=== PATIENT | female | born 1995 | race Caucasian/White ===

== ENCOUNTER 2017-05-12 16:26 | Emergency (ER) | payer OTHER ==
--- NOTE | 2017-05-12 17:15 | ED ---
URI HPI - General Chief Complaint: Upper Respiratory Infection Stated Complaint: Difficulty Breathing Time Seen by Provider: 05/12/17 16:53 Source: patient, family, RN notes reviewed, old records reviewed Mode of arrival: wheelchair - History of Present Illness Initial Comments: This patient is a 22-year-old female presents emergency Department chief complaint of difficulty breathing and cough. Who's your porch that she was diagnosed with allergies envelope respiratory on this by her primary care physician, start on allergy medicine and decongestant medicine. Patient ports of this is on Tuesday. Patient states that over the past three days to became worse. She states that she now has a difficult time breathing. No history of asthma. She's a non-smoker. She's really very healthy.Patient has had her childhood vaccinations. She denies any specific chest pain. She reports that she has bodyaches, headache, chills. - Related Data Home Medications Medication Instructions Recorded Confirmed Clarithromycin 250 mg PO BID 05/12/17 05/12/17 Lessina 1 tab PO DAILY 05/12/17 05/12/17 guaiFENesin SYRUP 100MG/5ML 200 mg PO Q6H PRN 05/12/17 05/12/17 [Robitussin] guaiFENesin [Mucinex] 600 mg PO BID 05/12/17 05/12/17 Previous Rx's Medication Instructions Recorded Albuterol Inhaler [Ventolin Hfa 1 - 2 puff INHALATION Q6HR PRN #1 05/12/17 Inhaler] inhaler predniSONE 50 mg PO DAILY #5 tablet 05/12/17 Allergies Allergy/AdvReac Type Severity Reaction Status Date / Time amoxicillin AdvReac Nausea Verified 05/12/17 17:03 amoxicillin trihydrate AdvReac Nausea Verified 05/12/17 17:03 [From Augmentin] potassium clavulanate AdvReac Nausea Verified 05/12/17 17:03 [From Augmentin] Review of Systems ROS Statement: Those systems with pertinent positive or pertinent negative responses have been documented in the HPI. ROS Other: All systems not noted in ROS Statement are negative. Past Medical History Additional Past Medical History / Comment(s): OVARIAN CYST History of Any Multi-Drug Resistant Organisms: None Reported Past Surgical History: No Surgical Hx Reported Past Psychological History: No Psychological Hx Reported Smoking Status: Never smoker Past Alcohol Use History: None Reported Past Drug Use History: None Reported General Exam - General Exam Comments Initial Comments: This is a 22 year old female. Patient does not appear in any acute distress. General appearance: alert, in no apparent distress Head exam: Present: atraumatic, normocephalic, normal inspection Eye exam: Present: normal appearance, PERRL, EOMI. Absent: scleral icterus, conjunctival injection, periorbital swelling ENT exam: Present: normal exam, mucous membranes moist Neck exam: Present: normal inspection. Absent: tenderness, meningismus, lymphadenopathy Respiratory exam: Present: wheezes (bilateral wheezing noted. ). Absent: normal lung sounds bilaterally, respiratory distress, rales, rhonchi, stridor Cardiovascular Exam: Present: regular rate, normal rhythm, normal heart sounds. Absent: systolic murmur, diastolic murmur, rubs, gallop, clicks GI/Abdominal exam: Present: soft, normal bowel sounds. Absent: distended, tenderness, guarding, rebound, rigid Extremities exam: Present: normal inspection, full ROM, normal capillary refill. Absent: tenderness, pedal edema, joint swelling, calf tenderness Neurological exam: Present: alert, oriented X3, CN II-XII intact Psychiatric exam: Present: normal affect, normal mood Skin exam: Present: warm, dry, intact, normal color. Absent: rash Course Vital Signs 05/12/17 05/12/17 05/12/17 16:45 17:41 17:49 Temperature 98.5 F Pulse Rate 80 65 66 Respiratory 18 14 14 Rate Blood Pressure 120/75 O2 Sat by Pulse 100 Oximetry 05/12/17 05/12/17 05/12/17 19:13 19:23 19:34 Temperature 97.7 F Pulse Rate 89 88 98 Respiratory 16 16 18 Rate Blood Pressure 117/56 O2 Sat by Pulse Oximetry Medical Decision Making - Medical Decision Making Patient is a 22-year-old female presents today with a chief complaint of headache, bodyaches, chills nausea and shortness of breath. She diagnosed with allergies and abreast of Dolly congestion earlier this week and was taking a decongestant medicine. Patient has had significant wheezing noted on exam. No other focal findings. Patient was given a Duoneb treatment and chest x-ray steroids and the nausea medicine. Patients Did have a improvement after the breathing treatment. She had a normal chest x-ray, influenza testing is negative. It is time patient will be discharged with steroids and albuterol inHailer for viral asthma exacerbation. I discussed prompt follow up with primary care provider. All questions were answered in return parameters were discussed. - Lab Data Lab Results 05/12/17 Range/Units 17:55 Influenza Type A RNA Not Detected (Not Detectd) Influenza Type B (PCR) Not Detected (Not Detectd) - Radiology Data Radiology results: report reviewed CXR was reviewed and normal. Disposition Clinical Impression: Asthma exacerbation, Viral syndrome Disposition: HOME SELF-CARE Condition: Good Instructions: Asthma (ED), Upper Respiratory Infection (ED) Additional Instructions: Patient resting Motrin Tylenol for pain and aches. Patient should increase her fluid intake. Take the steroids as directed and use inhaler. Follow-up with PCP within the next 2-3 days. Return to emergency department if any alarming signs or symptoms occur. Prescriptions: Albuterol Inhaler [Ventolin Hfa Inhaler] 1 - 2 puff INHALATION Q6HR PRN #1 inhaler PRN Reason: Shortness Of Breath predniSONE 50 mg PO DAILY #5 tablet Referrals: Cassandra Giordano DO [Primary Care Provider] - 1-2 days Time of Disposition: 18:40
[2017-05-12] MEDS ORDERED: methylPREDNISolone SOD SUCCI 125 MG/2 ML VIAL IV STA (17:24)
[2017-05-12] MEDS ORDERED: ONDANSETRON 4 MG/2 ML VIAL IVP STA (17:24)
[2017-05-12] MEDS ORDERED: IPRATROPIUM-ALBUTEROL 3 ML NEB INHALATION STA ×2 (17:40→18:57)
--- NOTE | 2017-05-12 18:20 | XR ---
EXAMINATION TYPE: XR chest 2V DATE OF EXAM: 05/12/2017 COMPARISON: 01/07/2016 HISTORY: Short of breath TECHNIQUE: Frontal and lateral views of the chest are obtained. FINDINGS: Heart and mediastinum are normal. Lungs are clear. Diaphragm is normal. Bony thorax is int act. 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 IMPRESSION: No cardiopulmonary disease. No change.
[2017-05-12 19:36] VITALS: BP 117/56; PULSE 98; RESP 18; TEMP 97.7
--- NOTE | 2017-05-13 07:41 | CDI ---
Dear Luis Manuel PA: Please do addendum to ED report for Physical exam and MDM. Thank you, Arabella Chirinos Chief Legal Officer If you have any question, Please contact school operations manager at [phone] [facility]
== END 2017-05-12 19:34 | disposition home or self-care (01) ==
LOC: EC 16:26
DX: J45.901 Unspecified asthma with (acute) exacerbation (principal); B34.9 Viral infection, unspecified; Z79.899 Other long term (current) drug therapy; Z88.0 Allergy status to penicillin
CPT/HCPCS: 94640 ×2; 87502; 71046; 99284; 96374; 96375; J2930; J2405

== ENCOUNTER 2018-07-21 01:40 | Emergency (ER) | payer OTHER ==
[2018-07-21 03:35] LABS: Appearance,Urine Clear (Clear); Bilirubin,Urine Negative (Negative); Blood,Urine Negative (Negative); Color,Urine Light Yellow; Glucose,Urine (UA) Negative (Negative); Ketones,Urine 1+ (Negative); Leukocyte Esterase,Urine Negative (Negative); Nitrite,Urine Negative (Negative); Protein,Urine Negative (Negative); Specific Gravity,Urine 1.012 (1.001-1.035); Urobilinogen,Urine <2.0 mg/dL (<2.0)
--- NOTE | 2018-07-21 03:44 | ED ---
Dizziness HPI - General Chief Complaint: Dizziness Stated Complaint: Dizzy,numbness Time Seen by Provider: 07/21/18 02:32 Source: patient Mode of arrival: ambulatory Limitations: no limitations - History of Present Illness Initial Comments: 23-year-old female with past medical history of chronic migraines presenting for evaluation of generalized numbness. Patient states she has history of chronic migraines, she states the past 2 months she has had visual changes with her migraines, she states it seems as though things are tilted. Patient denies ove rt dizziness. Patient denies any changes in gait, nausea vomiting head injury. Patient denies any neck pain. Patient denies any sudden onset of headache or the worst headache of her life. Patient states her headaches that she gets are that of her typical headache. She states they're mostly left-sided. Patient states she does have a dull aching headache currently however this does not appear out of character for her typical migraines. Patient is a she has not had evaluation for her migraines. Patient denies history of hypertension or diabetes. Patient denies history of aneurysm. Patient states that today she had one of her migraines with visual changes, she states that she then felt as though her whole body was numb, she was unable to really describe the sensation. She states it was not localized to one arm or leg or part of her face. She states it was just her entire body. She described as general malaise. Patient states she felt something was not right and presented to the emergency department for evaluation. Upon arrival pt appears well no acute distress. Remaining ROS (-). - Related Data Home Medications Medication Instructions Recorded Confirmed Clarithromycin 250 mg PO BID 05/12/17 05/12/17 Lessina 1 tab PO DAILY 05/12/17 05/12/17 guaiFENesin SYRUP 100MG/5ML 200 mg PO Q6H PRN 05/12/17 05/12/17 [Robitussin] guaiFENesin [Mucinex] 600 mg PO BID 05/12/17 05/12/17 Previous Rx's Medication Instructions Recorded Albuterol Inhaler [Ventolin Hfa 1 - 2 puff INHALATION Q6HR PRN #1 05/12/17 Inhaler] inhaler predniSONE 50 mg PO DAILY #5 tablet 05/12/17 Allergies Allergy/AdvReac Type Severity Reaction Status Date / Time amoxicillin AdvReac Nausea Verified 07/21/18 01:46 amoxicillin trihydrate AdvReac Nausea Verified 07/21/18 01:46 [From Augmentin] potassium clavulanate AdvReac Nausea Verified 07/21/18 01:46 [From Augmentin] Review of Systems ROS Statement: Those systems with pertinent positive or pertinent negative responses have been documented in the HPI. ROS Other: All systems not noted in ROS Statement are negative. Past Medical History Additional Past Medical History / Comment(s): OVARIAN CYST History of Any Multi-Drug Resistant Organisms: None Reported Past Surgical History: No Surgical Hx Reported Past Psychological History: No Psychological Hx Reported Smoking Status: Never smoker Past Alcohol Use History: None Reported Past Drug Use History: None Reported General Exam - General Exam Comments Initial Comments: General: The patient is awake and alert, in no distress, and does not appear acutely ill. Eye: +3 mm pupils are equal, round and reactive to light, extra-ocular movements are intact. No nystagmus. There is normal conjunctiva bilaterally. No signs of icterus. Ears, nose, mouth and throat: There are moist mucous membranes and no oral lesions. Neck: The neck is supple, there is no tenderness or JVD. Cardiovascular: There is a regular rate and rhythm. No murmur, rub or gallop is appreciated. Respiratory: Lungs are clear to auscultation, respirations are non-labored, breath sounds are equal. No wheezes, stridor, rales, or rhonchi. Gastrointestinal: Soft, non-distended, non-tender abdomen without masses or organomegaly noted. There is no rebound or guarding present. Bowel sounds are unremarkable. Musculoskeletal: Normal ROM, no tenderness. Strength 5/5. Sensation intact. Pulses equal bilaterally 2+. Neurological: A&O x 3. CN II-XII intact, memory intact to immediately, intermediate and termite control technician recall. Able to follow simple verbal. Able to name a common object (pen). High quality, labial (pa) and lingual (la) speech. Low quality posterior pharynx/larynx (ga) voice sounds. Able to express general knowledge. No hemineglect or inattention noted. Finger agnosia (-) and spatially oriented. Light touch and temperature sensation present over the face, chest, abdomen, back, UE bilaterally, and LE bilaterally. Able to localize point during point localization b/l and extinction. No visible bulk atrophy, hypertrophy, fasciculations, or myoclonus of the UE or LE b/l. Full PROM in UE and LE b/l. Bilateral muscle strength 5/5 for the following muscles: deltoid, biceps, triceps, brachioradialis, wrist extensors/flexor, hip flexor, hip abductors/adductors, hamstrings, quadriceps, feet dorsiflexors/plantar flexors. Finger to nose, finger to the examiners finger, and heel to dalal coordinated and accurate b/l. Coordinated and even demonstration of hand flip, finger to thumb, and toe tap b/l. +2 brachioradialis, triceps, patellar, and Achilles DTR b/l. (-) primitive reflexes. Gait is coordinated and even in stride with tandem, toe and heel walk. Maintains balance with monopedal stance. (-) pronator drift. No nuchal rigidity. Skin: Skin is warm and dry and no rashes or lesions are noted. Psychiatric: Cooperative, appropriate mood & affect, normal judgment. Limitations: no limitations Course Vital Signs 07/21/18 07/21/18 01:44 05:09 Temperature 98.4 F 97 F L Pulse Rate 68 76 Respiratory 16 18 Rate Blood Pressure 126/82 111/74 O2 Sat by Pulse 100 98 Oximetry EKG Findings - EKG Comments: EKG Findings:: Ventricular rate 56 bpm, OH interval 150 ms, to tenriism 82 ms, QT/QTC 410/395 ms. This is sinus bradycardia. Yesterday elevation or depression. No T-wave inversion. Medical Decision Making - Medical Decision Making Well-appearing 23-year-old female presenting for entire body numbness. Patient states she has had visual changes with headache for the months. Pt states she was more concerned when she felt like her entire body was numb. Denies focal symptoms. Denies chest pain. No focal neurological deficits I examination. No nuchal rigidity or meningeal irritation signs. Patient denies any infectious symptoms. Patient has history of migraines for years. Patient denies any sudden onset severe worst headache of her life. Patient denies any vomiting or head injury. CTA revealed no abnormalities of the posterior circulation. CT without contrast no acute abnormality. Patient at this time states she is feeling better. Patient is provided Toradol for dull aching headache. Laboratory studies unremarkable. At this time feel patient symptoms most likely due to complex migraine. I do do not feel at this time patient has life- threatening cause of entire body numbness sensation. Patient was instructed to follow-up with neurology. Patient is agreeable to plan of care as well as discharge. All questions were answered to the best of my ability Patient appears pleased with plan. Case was discussed at length with attending provider prior to patient discharge. - Lab Data Result diagrams: 07/21/18 03:47 07/21/18 03:27 Lab Results 07/21/18 07/21/18 07/21/18 Range/Units 03:23 03:27 03:47 WBC 6.0 (3.8-10.6) k/uL RBC 4.89 (3.80-5.40) m/uL Hgb 14.3 (11.4-16.0) gm/dL Hct 43.6 (34.0-46.0) % MCV 89.3 (80.0-100.0) fL MCH 29.2 (25.0-35.0) pg MCHC 32.7 (31.0-37.0) g/dL RDW 12.5 (11.5-15.5) % Plt Count 290 (150-450) k/uL Neutrophils % 41 % Lymphocytes % 46 % Monocytes % 6 % Eosinophils % 4 % Basophils % 1 % Neutrophils # 2.5 (1.3-7.7) k/uL Lymphocytes # 2.7 (1.0-4.8) k/uL Monocytes # 0.4 (0-1.0) k/uL Eosinophils # 0.2 (0-0.7) k/uL Basophils # 0.1 (0-0.2) k/uL Sodium 138 (137-145) mmol/L Potassium 3.9 (3.5-5.1) mmol/L Chloride 105 (98-107) mmol/L Carbon Dioxide 27 (22-30) mmol/L Anion Gap 6 mmol/L BUN 16 (7-17) mg/dL Creatinine 0.69 (0.52-1.04) mg/dL Est GFR (CKD-EPI)AfAm >90 (>60 ml/min/1.73 sqM) Est GFR (CKD-EPI)NonAf >90 (>60 ml/min/1.73 sqM) Glucose 88 (74-99) mg/dL Calcium 9.7 (8.4-10.2) mg/dL Total Bilirubin 0.6 (0.2-1.3) mg/dL AST 20 (14-36) U/L ALT 20 (9-52) U/L Alkaline Phosphatase 56 (38-126) U/L Total Protein 6.4 (6.3-8.2) g/dL Albumin 4.2 (3.5-5.0) g/dL Urine Color Light Yellow Urine Appearance Clear (Clear) Urine pH 7.0 (5.0-8.0) Ur Specific [place] 1.012 (1.001-1.035) Urine Protein Negative (Negative) Urine Glucose (UA) Negative (Negative) Urine Ketones 1+ H (Negative) Urine Blood Negative (Negative) Urine Nitrite Negative (Negative) Urine Bilirubin Negative (Negative) Urine Urobilinogen <2.0 (<2.0) mg/dL Ur Leukocyte Esterase Negative (Negative) Disposition Clinical Impression: Dizziness, Malaise Disposition: HOME SELF-CARE Condition: Good Instructions (If sedation given, give patient instructions): Dizziness (ED) Additional Instructions: Please use medication as discussed. Please follow-up with family doctor in the next 2 days. PLease follow up with neurology as discussed. Please return to [facility] if the symptoms increase or worsen or for any other concerns. Is patient prescribed a controlled substance at d/c from ED?: No Referrals: Cassandra Giordano DO [Primary Care Provider] - 1-2 days Mark Good MD [STAFF PHYSICIAN] - 1-2 days Sarah Good MD [STAFF PHYSICIAN] - 1-2 days Time of Disposition: 05:03
[2018-07-21 03:53] LABS: ALT 20 U/L (9-52); AST 20 U/L (14-36); Albumin 4.2 g/dL (3.5-5.0); Alkaline Phosphatase 56 U/L (38-126); Anion Gap 6 mmol/L; Blood Urea Nitrogen 16 mg/dL (7-17); Calcium 9.7 mg/dL (8.4-10.2); Carbon Dioxide 27 mmol/L (22-30); Chloride 105 mmol/L (98-107); Glucose 88 mg/dL (74-99); Potassium 3.9 mmol/L (3.5-5.1); Sodium 138 mmol/L (137-145); Total Bilirubin 0.6 mg/dL (0.2-1.3); Total Protein 6.4 g/dL (6.3-8.2)
--- NOTE | 2018-07-21 04:19 | CT ---
EXAM: CT Angiography Head With Intravenous Contrast CLINICAL HISTORY: Dizziness, hx headache. TECHNIQUE: Axial computed tomographic angiography images of the head with intravenous contrast using CT angiography protocol. MIP reconstructed images were created and reviewed. Coronal and sagittal reformatted images were created and reviewed. CTDI is 73.47 mGy and DLP is 1262.1 mGy-cm. This CT exam was performed using one or more of the following dose reduction techniques: automated exposure control, adjustment of the mA and/or kV according to patient size, and/or use of iterative reconstruction technique. COMPARISON: No relevant prior studies available. FINDINGS: Right internal carotid artery: No acute findings. Intracranial segment is patent with no significant stenosis. No aneurysm or vascular malformation. Right anterior cerebral artery: Unremarkable. No occlusion or significant stenosis. No aneurysm or vascular malformation. Right middle cerebral artery: Unremarkable. No occlusion or significant stenosis. No aneurysm or vascular malformation. Right posterior cerebral artery: Unremarkable. No occlusion or significant stenosis. No aneurysm or vascular malformation. Right vertebral artery: Unremarkable as visualized. Left internal carotid artery: No acute findings. Intracranial segment is patent with no significant stenosis. No aneurysm or vascular malformation. Left anterior cerebral artery: Unremarkable. No occlusion or significant stenosis. No aneurysm or vascular malformation. Left middle cerebral artery: Unremarkable. No occlusion or significant stenosis. No aneurysm or vascular malformation. Left posterior cerebral artery: Unremarkable. No occlusion or significant stenosis. No aneurysm or vascular malformation. Left vertebral artery: Unremarkable as visualized. Basilar artery: Unremarkable. No occlusion or significant stenosis. No aneurysm or vascular malformation. IMPRESSION: Patent intracranial arteries. No hemodynamically significant stenosis, occlusion, aneurysm or vascular malformation. EXAM: CT Angiography Neck With Intravenous Contrast CLINICAL HISTORY: Dizziness, hx headache. TECHNIQUE: Axial computed tomographic angiography images of the neck with intravenous contrast using CT angiography protocol. MIP reconstructed images were created and reviewed. Coronal and sagittal reformatted images were created and reviewed. CTDI is 73.47 mGy and DLP is 1262.1 mGy-cm. This CT exam was performed using one or more of the following dose reduction techniques: automated exposure control, adjustment of the mA and/or kV according to patient size, and/or use of iterative reconstruction technique. COMPARISON: No relevant prior studies available. FINDINGS: VASCULATURE: Right common carotid artery: Unremarkable. No significant stenosis. No dissection or occlusion. Right internal carotid artery: Unremarkable. Extracranial segment is patent with no significant stenosis. No dissection or occlusion. Right external carotid artery: Unremarkable. No occlusion. Right vertebral artery: Unremarkable. No significant stenosis. No dissection or occlusion. Left common carotid artery: Unremarkable. No significant stenosis. No dissection or occlusion. Left internal carotid artery: Unremarkable. Extracranial segment is patent with no significant stenosis. No dissection or occlusion. Left external carotid artery: Unremarkable. No occlusion. Left vertebral artery: Unremarkable. No significant stenosis. No dissection or occlusion. NECK: Bones/joints: No acute fracture. No dislocation. Soft tissues: Unremarkable as visualized. No mass. CAROTID STENOSIS REFERENCE USING NASCET CRITERIA: % ICA stenosis = (1 - narrowest ICA diameter/diameter of distal cervical ICA) x 100. Mild - <50% stenosis. Moderate - 50-69% stenosis. Severe - 70-94% stenosis. Near occlusion - 95-99% stenosis. Occluded - 100% stenosis. IMPRESSION: Normal neck CTA. No hemodynamically significant stenosis, occlusion or dissection.
--- NOTE | 2018-07-21 04:21 | CT ---
EXAM: CT Head Without Intravenous Contrast CLINICAL HISTORY: Dizziness, hx headache. TECHNIQUE: Axial computed tomography images of the head/brain without intravenous contrast. Coronal and sagittal reformations provided. CTDI is 42.8 mGy and DLP is 954.5 mGy-cm. This CT exam was performed using one or more of the following dose reduction techniques: automated exposure control, adjustment of the mA and/or kV according to patient size, and/or use of iterative reconstruction technique. COMPARISON: No relevant prior studies available. FINDINGS: Brain: No evidence of acute infarct. No acute intracranial hemorrhage. No significant white matter disease. No edema. No mass effect or midline shift. Ventricles: Unremarkable. No ventriculomegaly. Bones/joints: Unremarkable. No acute fracture. Soft tissues: Unremarkable. Sinuses: Unremarkable as visualized. No acute sinusitis. Mastoid air cells: Unremarkable as visualized. No mastoid effusion. IMPRESSION: No evidence of acute intracranial abnormality.
[2018-07-21] MEDS ORDERED: KETOROLAC 30 MG/ML 1 ML VIAL IVP STA (04:43)
[2018-07-21 04:47] LABS: Basophils # (A) 0.1 k/uL (0-0.2); Basophils % (A) 1 %; Eosinophils # (A) 0.2 k/uL (0-0.7); Eosinophils % (A) 4 %; HCT 43.6 % (34.0-46.0); HGB 14.3 gm/dL (11.4-16.0); Lymphocytes # (A) 2.7 k/uL (1.0-4.8); Lymphocytes % (A) 46 %; MCH 29.2 pg (25.0-35.0); MCHC 32.7 g/dL (31.0-37.0); MCV 89.3 fL (80.0-100.0); Monocytes # (A) 0.4 k/uL (0-1.0); Monocytes % (A) 6 %; Neutrophils # (A) 2.5 k/uL (1.3-7.7); Neutrophils % (A) 41 %; Platelet Count 290 k/uL (150-450); RBC 4.89 m/uL (3.80-5.40); RDW 12.5 % (11.5-15.5)
[2018-07-21 05:11] VITALS: BP 111/74; PULSE 76; RESP 18; TEMP 97
== END 2018-07-21 05:10 | disposition home or self-care (01) ==
LOC: EC 01:40
DX: R42 Dizziness and giddiness (principal); R53.81 Other malaise; R51 Headache; Z79.3 Long term (current) use of hormonal contraceptives; Z79.899 Other long term (current) drug therapy; Z88.0 Allergy status to penicillin
CPT/HCPCS: 36415; 93005; 80053; 85025; 81003; 70496; 70450; 70498; 99284; 96374; J1885; Q9967

== ENCOUNTER → 2018-09-02 | Outpatient (CLI) | payer OTHER ==
--- NOTE | 2018-09-02 17:49 | MR ---
EXAMINATION TYPE: MR brain wo con DATE OF EXAM: 09/02/2018 COMPARISON: None HISTORY: Visual disturbances / Syncope / Passed out in July Standard multiplanar, multisequence MRI departmental protocol Multiplanar, multisequence images of the brain were acquired. Diffusion weighted imaging was performe d. FINDINGS: Ventricles and sulci appear normal. There is no mass effect nor midline shift. There is no sign of intracranial hemorrhage. Brainstem is intact. Corpus callosum appears normal. Sella turcica a ppears normal. There is no evidence of cerebral edema. There is no evidence of orbital mass. Optic ch iasm appears normal. On the FLAIR images there are 2 small foci of increased signal in the subcortical left posterior fron cris lobe that measure 2 mm. There is no evidence of cortical infarct. IMPRESSION: 2 small white matter high signal foci in the left posterior frontal lobe of uncertain significance. O therwise negative exam. No cortical infarct.
== END | disposition home or self-care (01) ==
LOC: RADMRIMAIN 10:14
PROVIDERS: ATTEND Family Medicine
DX: R90.89 Other abnormal findings on diagnostic imaging of central nervous system (principal); R55 Syncope and collapse; R53.83 Other fatigue; H53.8 Other visual disturbances
CPT/HCPCS: 70551

== ENCOUNTER 2018-10-03 14:41 | Emergency (ER) | payer OTHER ==
[2018-10-03 14:49] VITALS: RESP 18
--- NOTE | 2018-10-03 18:14 | ED ---
General Adult HPI - General Chief complaint: Weakness Stated complaint: Having a hard time talking Time Seen by Provider: 10/03/18 14:58 Source: patient Mode of arrival: wheelchair Limitations: no limitations - History of Present Illness Initial comments: Patient is a 23-year-old female presenting to the emergency Department with weakness. Patient reports her initial symptoms started approximately 6 months ago patient with the emergency department where she was discharged without a final diagnosis. Patient follow-up with primary care who sent her to a neurologist. An MRI without contrast was performed and showed 2 small masses in the frontal lobe. Patient reports she was scheduled to have an MRI with contrast but the process has been delayed. Patient states she currently developed one-sided facial weakness and states left-sided "funny" feeling in her throat. Patient also reports seeing intermittent black spots. Patient denies headache, nausea, vomiting or diarrhea. Patient does report intermittent numbness and tingling on the left upper lower extremity. Patient reports a chronic symptoms but today they're worse than usual. - Related Data Home Medications Medication Instructions Recorded Confirmed Aranelle 28 1 tab PO QAM 10/03/18 10/03/18 L.acidoph,Paracasei, B.lactis 1 cap PO DAILY 10/03/18 10/03/18 [Probiotic] Allergies Allergy/AdvReac Type Severity Reaction Status Date / Time amoxicillin AdvReac Nausea Verified 10/03/18 17:24 amoxicillin trihydrate AdvReac Nausea Verified 10/03/18 17:24 [From Augmentin] potassium clavulanate AdvReac Nausea Verified 10/03/18 17:24 [From Augmentin] Review of Systems ROS Statement: Those systems with pertinent positive or pertinent negative responses have been documented in the HPI. ROS Other: All systems not noted in ROS Statement are negative. Past Medical History Additional Past Medical History / Comment(s): OVARIAN CYST. 2 lesions in frontal lobe History of Any Multi-Drug Resistant Organisms: None Reported Past Surgical History: No Surgical Hx Reported Past Psychological History: No Psychological Hx Reported Smoking Status: Never smoker Past Alcohol Use History: Occasional Past Drug Use History: None Reported General Exam Limitations: no limitations General appearance: alert, in no apparent distress Head exam: Present: atraumatic, normocephalic, normal inspection Eye exam: Present: normal appearance, PERRL, EOMI Pupils: Present: normal accommodation ENT exam: Present: normal exam, normal oropharynx, mucous membranes moist, TM's normal bilaterally, normal external ear exam, other (No facial droopiness. Face symmetrical.) Neck exam: Present: normal inspection, full ROM Respiratory exam: Present: normal lung sounds bilaterally Cardiovascular Exam: Present: regular rate, normal rhythm, normal heart sounds Extremities exam: Present: normal inspection, full ROM, normal capillary refill, other (+2 ulnar and radial pulses bilaterally. +2 dorsalis pedis and posterior tibialis bilaterally.) Back exam: Present: normal inspection, full ROM Neurological exam: Present: alert, oriented X3 Psychiatric exam: Present: normal affect, normal mood Skin exam: Present: warm, intact, normal color Course Vital Signs 10/03/18 10/03/18 14:44 16:30 Temperature 97.9 F Pulse Rate 98 73 Respiratory 18 18 Rate Blood Pressure 134/86 122/97 O2 Sat by Pulse 99 98 Oximetry Medical Decision Making - Medical Decision Making Patient a 23-year-old female presents emergency Department with weakness. Based on the patient's history and the symptoms she is experiencing occurred to be transient and intermittent in nature. She has a preestablished relationship with neurologist Dr. Girard and needs further management with him. Initially patient was going to be admitted for further management and an MRI with contrast in the morning. The flight test data acquisition technician was able obtain the MRI immediately after the order was placed. At this point, the mother and patient want to go home. The patient feels comfortable going home as she understands her symptoms are transient because she has experienced them before. the imaging will be sent to her neurologist after final reading is obtained from radiology. Strict return parameters were thoroughly discussed with patient and mother were understanding and agreeable. also examine the patient and is in agreement with the treatment plan. Disposition Clinical Impression: Weakness Disposition: HOME SELF-CARE Condition: Stable Additional Instructions: Please follow up with her neurologist. Please return to emergency department if symptoms worsen. Is patient prescribed a controlled substance at d/c from ED?: No Referrals: Cassandra Giordano DO [Primary Care Provider] - 1-2 days Time of Disposition: 18:20
--- NOTE | 2018-10-03 18:40 | MR ---
EXAMINATION TYPE: MR brain wo/w con DATE OF EXAM: 10/03/2018 COMPARISON: MRI 09/02/2018 HISTORY: Left side weakness/numbness TECHNIQUE: Multiplanar, multisequence images of the brain and brainstem is performed without and with IV contras t, utilizing 5.5 mL intravenous Gadavist . FINDINGS: Diffusion weighted images demonstrate no evidence of a recent infarct or other diffusion ab normality. There is no extra-axial fluid collection or significant white matter signal abnormality. The ventricular system and cisternal spaces are normal in size and appearance. The brain volume is age appropriate. The previously seen 2 small foci of increased signal in the subcortical left posterior frontal lobe a re unchanged. These foci have normal postgadolinium appearance. Post contrast images demonstrate no abnormal enhancement. The dural venous sinuses appear patent. Midline structures demonstrate normal morphology. The craniocervical junction appears within normal limits. The visualized sinuses are clear and the globes are intact. IMPRESSION: No acute process; stable MRI appearance; normal contrast enhancement pattern.
[2018-10-03 18:53] VITALS: BP 111/71; PULSE 61; TEMP 97.8
== END 2018-10-03 18:53 | disposition home or self-care (01) ==
LOC: EC 14:41
DX: R53.1 Weakness (principal); R20.0 Anesthesia of skin; R20.2 Paresthesia of skin; R29.810 Facial weakness; Z87.42 Personal history of other diseases of the female genital tract; Z79.3 Long term (current) use of hormonal contraceptives; Z88.0 Allergy status to penicillin
CPT/HCPCS: 70553; 99284; A9585

== ENCOUNTER → 2019-08-14 | Outpatient (CLI) | payer OTHER ==
--- NOTE | 2019-08-14 16:28 | US ---
EXAMINATION TYPE: US pelvis complete transvag DATE OF EXAM: 08/14/2019 COMPARISON: NONE CLINICAL HISTORY: N92.6 irregular menstration. TECHNIQUE: Transvaginal (TV) and Transabdominal (TA) . Transabdominal sonographic images of the pel vis were acquired. Transvaginal sonographic images were medically necessary to better assess the fol lowing anatomy: Date of LMP: 3 months prior EXAM MEASUREMENTS: Uterus: 6.4 x 3.6 x 5.4 cm Endometrial Stripe: 0.4 cm Right Ovary: extensive overlying bowel gas, obscured Left Ovary: 2.2 x 1.3 x 1.2 cm 1. Uterus: Retroverted 2. Endometrium: wnl 3. Right Ovary: extensive overlying bowel gas, obscured 4. Left Ovary: wnl 5. Bilateral Adnexa: 6. Posterior cul-de-sac: mild to moderate fluid Urinary bladder is sonolucent. Posterior wall is normal. IMPRESSION: 1. Limited pelvic ultrasound due to bowel gas. 2. No suspicious acute ultrasound changes.
== END | disposition home or self-care (01) ==
LOC: RADUSMAIN 13:53
PROVIDERS: ATTEND Family Medicine
DX: N92.6 Irregular menstruation, unspecified (principal)
CPT/HCPCS: 76830; 76856

== ENCOUNTER → 2020-10-09 | Outpatient (CLI) | payer OTHER ==
--- NOTE | 2020-10-09 12:05 | US ---
EXAMINATION TYPE: US thyroid st tissue head/neck DATE OF EXAM: 10/09/2020 COMPARISON: NONE CLINICAL HISTORY: R59.0 Localized enlarged lymph nodes. Left neck supraclavicular palpable lymph node s x 3 months Left neck: multiple nymph nodes with largest measuring 1.4 x 0.2 x 0.6cm Right neck: lymph node seen measuring 1.3 x 0.3 x 0.9cm IMPRESSION: Multiple normal-appearing lymph nodes are seen in the bilateral neck. CT with contrast is more sensit thalia.
== END | disposition home or self-care (01) ==
LOC: RADUSWWP 09:33
PROVIDERS: ATTEND Family Medicine
DX: R59.0 Localized enlarged lymph nodes (principal)
CPT/HCPCS: 76536

== ENCOUNTER 2022-09-11 14:26 | Observation (INO) | payer BC ==
[2022-09-11 15:19] LABS: Appearance,Urine Clear (Clear); Bilirubin,Urine Negative (Negative); Blood,Urine Negative (Negative); Color,Urine Yellow; Glucose,Urine (UA) Negative (Negative); Ketones,Urine Negative (Negative); Leukocyte Esterase,Urine Negative (Negative); Nitrite,Urine Negative (Negative); PH, Urine 7.5 (5.0-8.0); Protein,Urine Negative (Negative); Specific Gravity,Urine 1.013 (1.001-1.035); Urobilinogen,Urine <2.0 mg/dL (<2.0)
[2022-09-11] MEDS: LACTATED RINGERS 1,000 ML IV SCH ×3 (16:00→17:25)
[2022-09-11 17:29] VITALS: RESP 16
[2022-09-11 17:29] LABS: Basophils % (A) 0 %; Eosinophils % (A) 0 %; HCT 35.7 % (34.0-46.0); HGB 12.1 gm/dL (11.4-16.0); Lymphocytes # (A) 1.5 k/uL (1.0-4.8); Lymphocytes % (A) 10 %; MCH 30.8 pg (25.0-35.0); MCHC 33.8 g/dL (31.0-37.0); Mean Platelet Volume 7.9; Monocytes # (A) 0.6 k/uL (0-1.0); Monocytes % (A) 4 %; Neutrophils % (A) 84 %; Platelet Count 292 k/uL (150-450); RBC 3.93 m/uL (3.80-5.40); RDW 12.6 % (11.5-15.5); WBC 14.2 k/uL (3.8-10.6)
--- NOTE | 2022-09-11 18:23 | US ---
EXAMINATION TYPE: US kidneys/renal and bladder DATE OF EXAM: 09/11/2022 COMPARISON: NONE CLINICAL INDICATION: Female, 27 years old with history of possible kidney stone; Right flank pain. pa tient is EXAM MEASUREMENTS: Right Kidney: 11.8 x 6.0 x 4.8 cm Left Kidney: 11.5 x 5.4 x 4.9 cm Right Kidney: mild hydronephrosis, cortical medullary differentiation maintained. Left Kidney: mild hydronephrosis, cortical medullary differentiation maintained. Bladder: not fully distended Bilateral Jets seen: no There is no evidence for hydronephrosis at this point in time. No nephrolithiasis is seen. No drake s are identified. The urinary bladder is anechoic. IMPRESSION: Mild bilateral hydronephrosis which can be seen in the setting of normal .
[2022-09-11] MEDS ORDERED: HYDROmorphone 1 MG/ML 1 ML SYRINGE IVP PRN (18:51)
[2022-09-11] MEDS ORDERED: ACETAMINOPHEN TAB 325 MG TAB PO PRN (18:51)
[2022-09-12] MEDS: LACTATED RINGERS 1,000 ML IV SCH (00:57)
[2022-09-12 07:48] VITALS: BP 116/57; PULSE 71; TEMP 97.1
--- NOTE | 2022-09-12 09:05 | P.HPOB ---
History of Present Illness H&P Date: 09/11/22 Chief Complaint: contractions 27 year old presents at 29 weeks 1 day complaining of contractions every few minutes. heart tones category 1. cervix is closed and thick but she is showing contractions every few minutes and complaining of back pain. US of kid neys neg as well as UA neg but wbc are elevated at 14. will admit to [facility] for hydration and antibiotics. Review of Systems All systems: negative Constitutional: Denies chills, Denies fever Eyes: denies blurred vision, denies pain Ears, nose, mouth and throat: Denies headache, Denies sore throat Cardiovascular: Denies chest pain, Denies shortness of breath Respiratory: Denies cough Gastrointestinal: Denies abdominal pain, Denies diarrhea, Denies nausea, Denies vomiting Genitourinary: Denies dysuria, Denies hematuria Musculoskeletal: Denies myalgias Integumentary: Denies pruritus, Denies rash Neurological: Denies numbness, Denies weakness Psychiatric: Denies anxiety, Denies depression Endocrine: Denies fatigue, Denies weight change Past Medical History Past Medical History: No Reported History Additional Past Medical History / Comment(s): OVARIAN CYST. 2 lesions in frontal lobe History of Any Multi-Drug Resistant Organisms: None Reported Past Surgical History: No Surgical Hx Reported Past Anesthesia/Blood Transfusion Reactions: No Reported Reaction Past Psychological History: No Psychological Hx Reported Smoking Status: Never smoker Past Alcohol Use History: None Reported Past Drug Use History: None Reported Medications and Allergies Home Medications Medication Instructions Recorded Confirmed Type Ascorbic Acid [Vitamin C] 500 mg PO DAILY 09/11/22 09/11/22 History Calcium Carbonate [Calcium] 600 mg PO DAILY 09/11/22 09/11/22 History Cholecalciferol (Vitamin D3) 1,250 mcg PO DAILY 09/11/22 09/11/22 History [Vitamin D3] Vit No.179/Iron/Folic 1 each PO DAILY 09/11/22 09/11/22 History [ Tablet] Psyllium Husk [Fiber Capsule] 0.4 gm PO DAILY 09/11/22 09/11/22 History Vitamin B Complex 1 each PO DAILY 09/11/22 09/11/22 History Allergies Allergy/AdvReac Type Severity Reaction Status Date / Time amoxicillin AdvReac Nausea Verified 10/03/18 17:24 amoxicillin trihydrate AdvReac Nausea Verified 10/03/18 17:24 [From Augmentin] potassium clavulanate AdvReac Nausea Verified 10/03/18 17:24 [From Augmentin] Exam Osteopathic Statement: *. No significant issues noted on an osteopathic structural exam other than those noted in the History and Physical/Consult. Vital Signs Temp Pulse Resp BP Pulse Ox 09/12/22 07:46 97.1 F L 71 16 116/57 100 09/12/22 01:03 96.7 F L 53 L 16 128/62 98 09/11/22 20:00 97.5 F L 72 16 128/82 100 09/11/22 17:26 97.1 F L 16 134/71 09/11/22 15:04 97.0 F L 90 18 133/74 98 Intake and Output 09/11/22 09/12/22 09/12/22 22:59 06:59 14:59 Other: # Voids 2 2 Weight 58.967 kg Heart: Regular rate and rhythm Lungs: Clear to auscultation bilaterally Abdomen: Soft, nontender Extremities: Negative Homans sign Results Result Diagrams: 09/11/22 17:00 Abnormal Lab Results - Last 24 Hours (Table) 09/11/22 Range/Units 17:00 WBC 14.2 H (3.8-10.6) k/uL Neutrophils # 12.0 H (1.3-7.7) k/uL Assessment and Plan (1) 29 weeks gestation of Current Visit: Yes Status: Acute Code(s): Z3A.29 - 29 WEEKS GESTATION OF SNOMED Code(s): 14005854 (2) Back pain affecting Current Visit: Yes Status: Acute Code(s): O99.891 - OTH DISEASES AND CO NDITIONS COMPLICATING ; M54.9 - DORSALGIA, UNSPECIFIED SNOMED Code(s): 58535906 (3) contractions Current Visit: Yes Status: Acute Code(s): O47.00 - FALSE LABOR BEFORE 37 COMPLETED WEEKS OF GEST, UNSP TRI SNOMED Code(s): 816981594 Plan: 1. admit to [facility] 2. IV fluids 3. ancef 1 gram q 6
--- NOTE | 2022-09-12 09:08 | P.DS ---
Providers Date of admission: 09/11/22 17:08 Expected date of discharge: 09/12/22 Attending physician: Fartun Dubon Primary care physician: Stated None - Discharge Diagnosis(es) (1) 29 weeks gestation of Current Visit: Yes Status: Acute (2) Back pain affecting Current Visit: Yes Status: Acute (3) contractions Current Visit: Yes Status: Acute Hospital Course: Patient presented complaining of contractions at 29 weeks. She had IV fluids and IV antibiotics. She has since stopped fredo and feels a lot better. She has no back pain or abdominal pain. Patient will be discharged home to follow-up with Dr. Agosto next week. Plan - Discharge Summary New Discharge Prescriptions: New Cephalexin [Keflex] 500 mg PO Q6HR 7 Days #28 cap No Action Ascorbic Acid [Vitamin C] 500 mg PO DAILY Psyllium Husk [Fiber Capsule] 0.4 gm PO DAILY Vitamin B Complex 1 each PO DAILY Vit No.179/Iron/Folic [ Tablet] 1 each PO DAILY Cholecalciferol (Vitamin D3) [Vitamin D3] 1,250 mcg PO DAILY Calcium Carbonate [Calcium] 600 mg PO DAILY Discharge Medication List Ascorbic Acid [Vitamin C] 500 mg PO DAILY 09/11/22 [History] Calcium Carbonate [Calcium] 600 mg PO DAILY 09/11/22 [History] Cholecalciferol (Vitamin D3) [Vitamin D3] 1,250 mcg PO DAILY 09/11/22 [History] Vit No.179/Iron/Folic [ Tablet] 1 each PO DAILY 09/11/22 [History] Psyllium Husk [Fiber Capsule] 0.4 gm PO DAILY 09/11/22 [History] Vitamin B Complex 1 each PO DAILY 09/11/22 [History] Cephalexin [Keflex] 500 mg PO Q6HR 7 Days #28 cap 09/12/22 [Rx] Follow up Appointment(s)/Referral(s): Jim Agosto MD [STAFF PHYSICIAN] - 1 Week Discharge Disposition: HOME SELF-CARE
== END 2022-09-12 10:01 | disposition home or self-care (01) ==
LOC: FBPOP 14:26 → 4FBP 17:08
PROVIDERS: ADMIT Obstetrics & Gynecology; ATTEND Obstetrics & Gynecology
DX: O60.03 Preterm labor without delivery, third trimester (principal); O99.891 Other specified diseases and conditions complicating pregnancy; M54.9 Dorsalgia, unspecified; D72.829 Elevated white blood cell count, unspecified; Z88.0 Allergy status to penicillin; Z88.8 Allergy status to other drugs, medicaments and biological substances; Z3A.29 29 weeks gestation of pregnancy; Z87.42 Personal history of other diseases of the female genital tract
CPT/HCPCS: 59025; 99214; 96361 ×2; 96365; 84112; 82731; 85025; 81003; 87086; 76770; G0378; J0690 ×2; 96360

== ENCOUNTER 2022-11-22 16:07 | Inpatient (IN) | payer BC ==
--- NOTE | 2022-11-22 07:01 | P.HPOB ---
History of Present Illness H&P Date: 11/22/22 Chief Complaint: Requested induction of labor This patient is a pleasant 27-year-old 1 para 0 female estimated date of confinement 11/26/2022 estimated gestational age 39-3/7 weeks who presents to labor and delivery for requested induction of labor. Patient's care for the most part has been uncomplicated. She did have an admission for suspected urinary tract infection and back pain. Patient's uncomfortable but does have an unfavorable cervix is now presents for Cervidil induction of labor. Review of Systems Genitourinary: Reports Menstruation: Reports amenorrhea Past Medical History Past Medical History: No Reported History Additional Past Medical History / Comment(s): OVARIAN CYST. 2 lesions in frontal lobe History of Any Multi-Drug Resistant Organisms: None Reported Past Surgical History: No Surgical Hx Reported Past Anesthesia/Blood Transfusion Reactions: No Reported Reaction Past Psychological History: No Psychological Hx Reported Smoking Status: Never smoker Past Alcohol Use History: None Reported Past Drug Use History: None Reported Medications and Allergies Home Medications Medication Instructions Recorded Confirmed Type Ascorbic Acid [Vitamin C] 500 mg PO DAILY 09/11/22 09/11/22 History Calcium Carbonate [Calcium] 600 mg PO DAILY 09/11/22 09/11/22 History Cholecalciferol (Vitamin D3) 1,250 mcg PO DAILY 09/11/22 09/11/22 History [Vitamin D3] Vit No.179/Iron/Folic 1 each PO DAILY 09/11/22 09/11/22 History [ Tablet] Psyllium Husk [Fiber Capsule] 0.4 gm PO DAILY 09/11/22 09/11/22 History Vitamin B Complex 1 each PO DAILY 09/11/22 09/11/22 History Cephalexin [Keflex] 500 mg PO Q6HR 7 Days #28 cap 09/12/22 Rx Allergies Allergy/AdvReac Type Severity Reaction Status Date / Time amoxicillin AdvReac Nausea Verified 10/03/18 17:24 amoxicillin trihydrate AdvReac Nausea Verified 10/03/18 17:24 [From Augmentin] potassium clavulanate AdvReac Nausea Verified 10/03/18 17:24 [From Augmentin] Exam - OBG Physical Exam Abdomen: bowel sounds normal, no diffuse tenderness, no bruit present, no guarding noted, no hepatomegaly, no splenomegaly, no mass Vulva: both: normal Vagina: normal moisture, no discharge Cervix: no lesion (Cervix in the office is closed.), no discharge Uterus: enlarged Results labs show that she is A positive, rubella immune, RPR is nonreactive, hepatitis B and C were negative, HIV is negative, so free DNA was normal, Glucola was 92, most recent growth ultrasound showed to be 6 lbs. 1 oz. which is 52nd percentile. Assessment and Plan Assessment: This is a pleasant 27-year-old 1 para 0 female 39-3/7 weeks gestation admitted to labor and delivery for requested induction of labor secondary to maternal discomfort. Patient's unfavorable cervix and therefore we plan to proceed with Cervidil induction of labor. (1) 39 weeks gestation of Status: Acute Code(s): Z3A.39 - 39 WEEKS GESTATION OF SNOMED Code(s): 38740787 (2) Elective induction of labor planned Status: Acute Code(s): OLG3214 - SNOMED Code(s): 796034155
[2022-11-22] MEDS ORDERED: DINOPROSTONE 10 MG INSERT.ER VAGINAL ONE (16:28)
[2022-11-22] MEDS ORDERED: NALBUPHINE 10 MG/ML (10 ML MDV) IV PRN (16:28)
[2022-11-22 16:37] VITALS: RESP 16
[2022-11-22] MEDS: LACTATED RINGERS 1,000 ML IV SCH (22:00)
[2022-11-22 23:33] LABS: Basophils # (A) 0.1 k/uL (0-0.2); Basophils % (A) 1 %; Eosinophils # (A) 0.1 k/uL (0-0.7); Eosinophils % (A) 1 %; HCT 33.1 % (34.0-46.0); HGB 11.7 gm/dL (11.4-16.0); Lymphocytes # (A) 2.5 k/uL (1.0-4.8); Lymphocytes % (A) 27 %; MCH 31.5 pg (25.0-35.0); MCHC 35.3 g/dL (31.0-37.0); MCV 89.4 fL (80.0-100.0); Mean Platelet Volume 8.9; Monocytes # (A) 0.6 k/uL (0-1.0); Monocytes % (A) 7 %; Neutrophils # (A) 5.7 k/uL (1.3-7.7); Neutrophils % (A) 62 %; Platelet Count 222 k/uL (150-450); RBC 3.71 m/uL (3.80-5.40); RDW 13.3 % (11.5-15.5); WBC 9.1 k/uL (3.8-10.6)
[2022-11-23] MEDS ORDERED: SODIUM CHLORIDE 0.9% 250 ML BAG ONE (02:02)
[2022-11-23] MEDS ORDERED: ROPIVACAINE 5 MG/ML 30 ML VIAL ONE (02:02)
[2022-11-23] MEDS ORDERED: fentaNYL (PF) 50 MCG/ML 5 ML AMP ONE (02:02)
[2022-11-23] MEDS ORDERED: CARBOPROST TROMETHAMINE 250 MCG/ML 1 ML AMP IM PRN (02:21)
[2022-11-23] MEDS ORDERED: miSOPROStoL 200 MCG TAB PO PRN (02:21)
[2022-11-23] MEDS ORDERED: OXYTOCIN 10 UNIT/ML 1 ML VIAL IM PRN (02:21)
[2022-11-23] MEDS ORDERED: TERBUTALINE 1 MG/ML VIAL SQ PRN (02:21)
[2022-11-23] MEDS ORDERED: METHYLERGONOVINE 0.2 MG/ML 1 ML AMP IM PRN (02:21)
[2022-11-23] MEDS ORDERED: TRANEXAMIC 1,000 MG/100ML-NACL 1,000 MG in EMPTY BAG 1 BAG IV PRN (02:21)
[2022-11-23] MEDS ORDERED: LIDOCAINE 0.5% (PF) 5 MG/ML (50 ML SDV) SQ PRN (02:21)
[2022-11-23] MEDS ORDERED: OXYTOCIN 30 UNITS/500 ML NS 30 UNIT in SALINE 1 500ML.BAG IV SCH ×2 (02:30→13:00)
--- NOTE | 2022-11-23 12:44 | P.PROBDLV ---
Vaginal Delivery Note - . Vaginal Delivery Note: Normal vaginal delivery viable female Apgars 9 and 9 delivery time is 1222 hrs. Please see dictated H&P for intimate details of this patient's admission. Brief summary this is a pleasant 27-year-old 1 para 0 female 39-3/7 weeks gestation admitted last evening for two-stage induction of labor. Patient has Cervidil placed and had a spontaneous rupture membranes at approximately 1:00 AM. Patient requests an epidural at this time. Patient's labor progresses and she does have Pitocin augmentation of labor. Patient pushes for approximately 1 hour pushes the head to the perineum. This time she does have some bradycardia is felt that the episiotomy would facilitate delivery. For this reason she had infiltration her posterior perineum with 1% lidocaine, a midline episiotomy is made. With this done we easily have delivery of the 's head over the perineum. Infant's head is straight occiput anterior presentation. Mouth and nares are bulb suctioned. Is no evidence of a nuchal cord. With gentle downward traction we then have delivery the anterior and posterior shoulder and rest this infant's body. This is a vigorous viable female Apgars are 9 and 9 delivery time is 1222 hrs. After delivery of the infant the umbilical cord is allowed to pulsate and then doubly clamped and cut. The placenta is then spontaneously delivered intact. Assessment blood loss is 200 mL. Inspection of perineum shows a midline laceration second-degree was repaired with 3-0 Vicryl usual fashion. Excellent reapproximation is noted. All counts are correct 3. There are no complications. and mother are stable delivery room.
[2022-11-23] MEDS ORDERED: diphenhydrAMINE 25 MG CAP PO PRN (12:46)
[2022-11-23] MEDS ORDERED: LANOLIN CREAM 5 GM TUBE TOPICAL PRN (12:46)
[2022-11-23] MEDS ORDERED: ZOLPIDEM 5 MG TAB PO PRN (12:46)
[2022-11-23] MEDS ORDERED: SIMETHICONE 80 MG CHEWABLE PO PRN (12:46)
[2022-11-23] MEDS ORDERED: bisacodyL 10 MG SUPP RECTAL PRN (12:46)
[2022-11-23] MEDS ORDERED: HYDROCORTISONE 2.5% RECTAL CREAM 30 GM TUBE RECTAL PRN (12:46)
[2022-11-23] MEDS ORDERED: BENZOCAINE/MENTHOL SPRAY 1 GM/SPRAY AEROSOL TOPICAL PRN (12:46)
[2022-11-23] MEDS ORDERED: diphenhydrAMINE 50 MG/ML 1 ML VIAL IVP PRN (12:46)
[2022-11-23] MEDS: IBUPROFEN 600 MG TAB PO PRN ×2 (12:55→20:09)
[2022-11-23] MEDS: ACETAMINOPHEN TAB 325 MG TAB PO PRN (16:44)
[2022-11-23] MEDS: SENNOSIDES-DOCUSATE SODIUM 1 EACH TAB PO SCH (20:10)
[2022-11-24] MEDS: ACETAMINOPHEN TAB 325 MG TAB PO PRN ×2 (00:29→07:39)
[2022-11-24 01:59] VITALS: TEMP 98.3
[2022-11-24] MEDS: IBUPROFEN 600 MG TAB PO PRN (03:40)
--- NOTE | 2022-11-24 06:36 | P.PNOBGVD ---
Subjective - Subjective Patient reports: Reports appetite normal, Reports voiding normally, Reports pain well controlled, Reports ambulating normally : doing well Objective - Latest Vital Signs Latest vital signs: Vital Signs Temp Pulse Resp BP Pulse Ox 11/24/22 00:00 98.3 F 71 16 114/71 11/23/22 20:00 98.5 F 73 16 136/89 98 11/23/22 14:52 63 16 135/80 97 11/23/22 14:22 69 16 139/80 98 11/23/22 13:52 88 16 157/89 96 11/23/22 13:37 86 16 144/81 97 11/23/22 13:22 75 16 140/86 96 11/23/22 13:07 77 16 137/82 97 11/23/22 12:52 82 16 148/84 97 Intake and Output 11/23/22 11/23/22 11/24/22 14:59 22:59 06:59 Intake Total 1440 480 Output Total 685 Balance -685 1440 480 Intake: Oral 1440 480 Output: Urine 300 Estimated Blood Loss 200 Output, Quantitative 185 Blood Loss Other: # Voids 1 1 2 - Exam Lungs: bilateral: normal Chest: Normal S1, Normal S2 Extremities: Present: normal Abdomen: Present: normal appearance, soft Uterus: Present: normal, firm Assessment and Plan Assessment: Post day #1. Patient is resting without complaints wishes to go home. Vital signs are stable she's afebrile. Uterus is firm nontender and she is having normal lochia. Impression this is a normal course. Plan is to continue routine care discharge home later today (1) 39 weeks gestation of Current Visit: No Status: Acute Code(s): Z3A.39 - 39 WEEKS GESTATION OF SNOMED Code(s): 62121620 (2) Elective induction of labor planned Current Visit: No Status: Acute Code(s): CYZ3868 - SNOMED Code(s): 963993646
--- NOTE | 2022-11-24 06:39 | P.DS ---
Providers Date of admission: 11/22/22 16:07 Expected date of discharge: 11/24/22 Attending physician: Jim Agosto Primary care physician: Cassandra Giordano - Discharge Diagnosis(es) (1) 39 weeks gestation of Current Visit: No Status: Acute (2) Elective induction of labor planned Current Visit: No Status: Acute Hospital Course: Please see dictated H&P for intimate details of this patient's admission. In brief summary this is a pleasant 27-year-old 1 para 0 female 39-3/7 weeks gestation admitted to labor and delivery for requested induction of labor. Patient had a two-stage induction of labor and subsequent was on have a vaginal delivery viable female . Please see dictated delivery note. day #1 patient's felt to be stable for discharge home follow up with me in 6 weeks. Procedures: Induction of labor and normal vaginal delivery Patient Condition at Discharge: Good Plan - Discharge Summary New Discharge Prescriptions: New Ibuprofen [Motrin] 600 mg PO Q6HR PRN #30 tab PRN Reason: Mild Pain (Scale 1 To 3) Discharge Medication List Ibuprofen [Motrin] 600 mg PO Q6HR PRN #30 tab 11/24/22 [Rx] Follow up Appointment(s)/Referral(s): Jim Agosto MD [STAFF PHYSICIAN] - 01/05/23 9:45 am Patient Instructions/Handouts: Vaginal Delivery (DC) Activity/Diet/Wound Care/Special Instructions: No intercourse or anything per vagina for 6 weeks. Please call if any fever, chills, excessive vaginal bleeding, and/or abdominal pain Discharge Disposition: HOME SELF-CARE
[2022-11-24 06:50] LABS: Basophils % (A) 0 %; Eosinophils # (A) 0.1 k/uL (0-0.7); Eosinophils % (A) 1 %; HCT 33.6 % (34.0-46.0); HGB 11.5 gm/dL (11.4-16.0); Lymphocytes # (A) 2.6 k/uL (1.0-4.8); Lymphocytes % (A) 20 %; MCHC 34.2 g/dL (31.0-37.0); MCV 90.6 fL (80.0-100.0); Mean Platelet Volume 8.8; Monocytes # (A) 0.6 k/uL (0-1.0); Monocytes % (A) 5 %; Neutrophils # (A) 9.2 k/uL (1.3-7.7); Neutrophils % (A) 73 %; Platelet Count 235 k/uL (150-450); RBC 3.71 m/uL (3.80-5.40); RDW 13.4 % (11.5-15.5); WBC 12.7 k/uL (3.8-10.6)
[2022-11-24] MEDS: SENNOSIDES-DOCUSATE SODIUM 1 EACH TAB PO SCH (07:38)
[2022-11-24 08:38] VITALS: BP 148/58; PULSE 103
[2022-11-24] MEDS: LACTATED RINGERS 1,000 ML IV SCH (08:40)
== END 2022-11-24 13:43 | disposition home or self-care (01) | DRG 807 ==
LOC: 4FBP 16:07
PROVIDERS: ADMIT Obstetrics & Gynecology; ATTEND Obstetrics & Gynecology
PROC: 10E0XZZ Delivery of Products of Conception, External Approach (ICD-10-PCS; principal; 2022-11-22)
PROC: 0KQM0ZZ Repair Perineum Muscle, Open Approach (ICD-10-PCS; 2022-11-22)
PROC: 3E0P7VZ Introduction of Hormone into Female Reproductive, Via Natural or Artificial Opening (ICD-10-PCS; 2022-11-22)
PROC: 4A0HXCZ Measurement of Products of Conception, Cardiac Rate, External Approach (ICD-10-PCS; 2022-11-22)
DX: O42.92 Full-term premature rupture of membranes, unspecified as to length of time between rupture and onset of labor (principal); O76 Abnormality in fetal heart rate and rhythm complicating labor and delivery; Z37.0 Single live birth; O70.1 Second degree perineal laceration during delivery; Z3A.39 39 weeks gestation of pregnancy; Z88.1 Allergy status to other antibiotic agents
CPT/HCPCS: 85025; 86850; 86900; 86901

== ENCOUNTER 2024-01-08 19:13 | Outpatient (CLI) | payer BC ==
[2024-01-08 20:40] VITALS: BP 120/73; PULSE 64; RESP 16; TEMP 96.9
== END 2024-01-08 20:15 | disposition home or self-care (01) ==
LOC: FBPOP 19:13
PROVIDERS: ATTEND Obstetrics & Gynecology
CPT/HCPCS: 59025; 84112; 99213

== ENCOUNTER 2024-01-13 09:20 | Outpatient (CLI) | payer BC ==
[2024-01-13 10:01] VITALS: BP 116/66; PULSE 80; RESP 16; TEMP 97.1
== END 2024-01-13 09:55 | disposition home or self-care (01) ==
LOC: FBPOP 09:20
PROVIDERS: ATTEND Obstetrics & Gynecology
CPT/HCPCS: 59025

== ENCOUNTER 2024-02-10 06:00 | Inpatient (IN) | payer BC ==
[2024-02-10] MEDS ORDERED: TERBUTALINE 1 MG/ML VIAL SQ PRN (06:52)
[2024-02-10] MEDS ORDERED: miSOPROStoL 200 MCG TAB RECTAL PRN (06:52)
[2024-02-10] MEDS ORDERED: CARBOPROST TROMETHAMINE 250 MCG/ML 1 ML AMP IM PRN (06:52)
[2024-02-10] MEDS ORDERED: OXYTOCIN 10 UNIT/ML 1 ML VIAL IM PRN (06:52)
[2024-02-10] MEDS ORDERED: TRANEXAMIC 1,000 MG/100ML-NACL 1,000 MG in EMPTY BAG 1 BAG IV PRN (06:52)
[2024-02-10] MEDS ORDERED: METHYLERGONOVINE 0.2 MG/ML 1 ML AMP IM PRN (06:52)
[2024-02-10] MEDS ORDERED: miSOPROStoL 200 MCG TAB PO PRN (06:52)
[2024-02-10] MEDS: OXYTOCIN 30 UNITS/500 ML NS 30 UNIT in SALINE 1 500ML.BAG IV SCH (07:27)
[2024-02-10] MEDS: LACTATED RINGERS 1,000 ML IV SCH (07:28)
[2024-02-10 07:31] LABS: Basophils # (A) 0.1 k/uL (0-0.2); Basophils % (A) 1 %; Eosinophils # (A) 0.1 k/uL (0-0.7); Eosinophils % (A) 1 %; HCT 38.4 % (34.0-46.0); HGB 13.1 gm/dL (11.4-16.0); Lymphocytes # (A) 2.1 k/uL (1.0-4.8); Lymphocytes % (A) 24 %; MCH 30.2 pg (25.0-35.0); MCV 88.8 fL (80.0-100.0); Mean Platelet Volume 7.9; Monocytes # (A) 0.5 k/uL (0-1.0); Monocytes % (A) 5 %; Neutrophils # (A) 5.9 k/uL (1.3-7.7); Neutrophils % (A) 68 %; Platelet Count 220 k/uL (150-450); RBC 4.32 m/uL (3.80-5.40); RDW 12.7 % (11.5-15.5); WBC 8.7 k/uL (3.8-10.6)
--- NOTE | 2024-02-10 08:27 | P.HPOB ---
History of Present Illness H&P Date: 02/10/24 Chief Complaint: Medical induction of labor 29 year old at 37 weeks and 0 days with EDC 03/02/2024 by LMP consistent with 8 week US being medically induced for IUGR in the 3%ile with elevated UA dopplers this week. The fetus has been under surveillance with NSTs, BPPs, and umbilical artery cord dopplers. Obstetric history: 1 FTVD at 39 weeks without complications, female, 7# workup: blood type A positive, antibody screen negative, rubella imm une, VDRL non-reactive, HBsAg negative, HIV negative, HCV non-reactive, gonorrhea negative, chlamydia negative, 1 hour GTT wnl, GBS negative. s/p Tdap vaccine. Past Medical History Past Medical History: No Reported History Additional Past Medical History / Comment(s): OVARIAN CYST. 2 lesions in frontal lobe History of Any Multi-Drug Resistant Organisms: None Reported Past Surgical History: No Surgical Hx Reported Past Anesthesia/Blood Transfusion Reactions: No Reported Reaction Past Psychological History: No Psychological Hx Reported Smoking Status: Never smoker Past Alcohol Use History: None Reported Past Drug Use History: None Reported - Past Family History Father Family Medical History: AFIB Medications and Allergies Home Medications Medication Instructions Recorded Confirmed Type Vit No.179/Iron/Folic 1 tab PO DAILY 01/08/24 02/06/24 History [ Tablet] Cholecalciferol [Vitamin D3 (10 10 mcg PO DAILY 02/06/24 02/06/24 History Mcg = 400 Iu)] Cyanocobalamin [Vitamin B-12] 500 mcg PO DAILY 02/06/24 02/06/24 History Docusate [Colace] 100 mg PO DAILY 02/06/24 02/06/24 History Ferrous Sulfate [Feosol] 325 mg PO DAILY 02/06/24 02/06/24 History Psyllium Husk [Fiber Capsule] 0.4 gm PO DAILY 02/06/24 02/06/24 History Allergies Allergy/AdvReac Type Severity Reaction Status Date / Time amoxicillin AdvReac Unknown Verified 02/10/24 06:52 Childhood amoxicillin trihydrate AdvReac Unknown Verified 02/10/24 06:52 [From Augmentin] Childhood potassium clavulanate AdvReac Unknown Verified 02/10/24 06:52 [From Augmentin] Childhood Exam Vital Signs Temp Pulse Resp BP Pulse Ox 02/10/24 07:32 97.4 F L 85 16 116/76 99 Intake and Output 02/09/24 02/10/24 02/10/24 22:59 06:59 14:59 Other: Weight 58.513 kg 58.513 kg Focused physical exam is performed. This is a healthy-appearing in no apparent distress. Breathing is non-labored. Abdomen is gravid and non-tender. Cervical exam is 3/80/-3/posterior. AROM is undertaken with clear fluid noted. Extremities non-tender and non-edematous. heart tones are Category I and tocometer is graphing contractions every 2-4 minutes. Results Result Diagrams: 02/10/24 06:50 Assessment and Plan Assessment: 29 year old being medically induced for IUGR with elevated UA cord dopplers at 37 weeks Plan: Admit, clear liquid diet, pitocin titrated per protocol, s/p AROM, IV nubain 5mg q5h prn, epidural prn. Continuous EFM and tocometer. Anticipate vaginal delivery.
[2024-02-10] MEDS ORDERED: fentaNYL (PF) 50 MCG/ML 5 ML AMP ONE (10:32)
[2024-02-10] MEDS ORDERED: SODIUM CHLORIDE 0.9% 250 ML BAG ONE (10:32)
[2024-02-10] MEDS ORDERED: ROPIVACAINE 5 MG/ML 30 ML VIAL ONE (10:32)
[2024-02-10] MEDS: LIDOCAINE 0.5% (PF) 5 MG/ML (50 ML SDV) SQ PRN (14:54)
[2024-02-10] MEDS ORDERED: LANOLIN CREAM 1 GM TUBE TOPICAL PRN (15:00)
[2024-02-10] MEDS ORDERED: ZOLPIDEM 5 MG TAB PO PRN (15:00)
[2024-02-10] MEDS ORDERED: diphenhydrAMINE 50 MG CAP PO PRN (15:00)
[2024-02-10] MEDS ORDERED: diphenhydrAMINE 50 MG/ML 1 ML VIAL IVP PRN ×2 (15:00)
[2024-02-10] MEDS ORDERED: diphenhydrAMINE 25 MG CAP PO PRN (15:00)
[2024-02-10] MEDS ORDERED: SIMETHICONE 80 MG CHEWABLE PO PRN (15:00)
[2024-02-10] MEDS ORDERED: HYDROCORTISONE 2.5% RECTAL CREAM 30 GM TUBE RECTAL PRN (15:00)
--- NOTE | 2024-02-10 15:00 | P.PROBDLV ---
Vaginal Delivery Note - . Vaginal Delivery Note: DATE OF SERVICE: 02/10/2024 PROCEDURE: Normal Vaginal Delivery ATTENDING: Dr. Maria Guadalupe Stern MD ESTIMATED BLOOD LOSS: 200 mL FINDINGS: VMI, Apgars 8/9. Weight 6#0z (2725 grams) PROCEDURE: Ms. Louis is a 29 year old at 37 weeks presenting to labor and delivery for medical induction of labor for IUGR with elevated UA dopplers. For further details, please review the admitting H&P. Pitocin was titrated per protocol, AROM was undertaken at approximately 0815. She received epidural anesthesia per her request. The patient was completely dilated at 1405. She pushed effectively. The head was delivered and one nuchal cord was reduced. A viable male infant was delivered at 1427. The infant was placed on the maternal abdomen and bulb suctioned. The infant was noted to be spontaneously crying. Cord was clamped and cut after a 30-second delay. The was handed off to the pediatric team. Placenta was delivered whole with gentle cord traction. Oxytocin was started to facilitate uterine tone. Uterine fundus was found to be firm and below the umbilicus upon fundal massage. Thorough examination of the cervix, vagina, periurethral area, and perineum revealed a small second degree perineal laceration that was infiltrated with lidocaine and repaired with 2-0 Vicryl in the usual fashion. The patient is stable and allowed to begin the bonding process.
[2024-02-10] MEDS: BENZOCAINE/MENTHOL SPRAY 1 GM/SPRAY AEROSOL TOPICAL PRN (15:56)
[2024-02-10] MEDS ORDERED: ACETAMINOPHEN TAB 500 MG TAB PO SCH (16:00)
[2024-02-10] MEDS: IBUPROFEN 800 MG TAB PO SCH (16:28)
[2024-02-10] MEDS: ACETAMINOPHEN TAB 500 MG TAB PO SCH (20:27)
[2024-02-10] MEDS: SENNOSIDES-DOCUSATE SODIUM 1 EACH TAB PO SCH (20:28)
[2024-02-11 01:53] LABS: Basophils # (A) 0.1 k/uL (0-0.2); Basophils % (A) 1 %; Eosinophils # (A) 0.2 k/uL (0-0.7); Eosinophils % (A) 2 %; HCT 33.3 % (34.0-46.0); HGB 11.3 gm/dL (11.4-16.0); Lymphocytes # (A) 2.1 k/uL (1.0-4.8); Lymphocytes % (A) 20 %; MCH 30.5 pg (25.0-35.0); MCV 89.7 fL (80.0-100.0); Mean Platelet Volume 8.3; Monocytes # (A) 0.6 k/uL (0-1.0); Monocytes % (A) 6 %; Neutrophils # (A) 7.3 k/uL (1.3-7.7); Neutrophils % (A) 70 %; Platelet Count 204 k/uL (150-450); RBC 3.71 m/uL (3.80-5.40); RDW 13.1 % (11.5-15.5); WBC 10.3 k/uL (3.8-10.6)
--- NOTE | 2024-02-11 11:59 | P.PNOBGVD ---
Subjective - Subjective Patient reports: Reports appetite normal, Reports voiding normally, Reports pain well controlled, Reports ambulating normally : doing well, in NICU Objective - Latest Vital Signs Latest vital signs: Vital Signs Temp Pulse Resp BP Pulse Ox 02/11/24 08:45 97.5 F L 98 16 125/88 99 02/11/24 00:00 97.6 F 53 L 16 100/63 98 02/10/24 20:00 97.4 F L 64 16 123/82 98 02/10/24 16:47 97.0 F L 70 16 133/78 02/10/24 16:32 69 16 124/84 02/10/24 16:17 71 16 123/84 02/10/24 16:02 84 16 118/77 02/10/24 15:47 60 16 114/74 02/10/24 15:32 63 16 110/72 02/10/24 15:17 84 16 127/75 02/10/24 15:02 65 16 119/72 02/10/24 14:47 97.3 F L 81 16 129/64 Intake and Output 02/10/24 02/11/24 02/11/24 22:59 06:59 14:59 Output Total 320 Balance -320 Output: Output, Quantitative 320 Blood Loss Other: # Voids 1 2 1 - Exam Extremities: Present: normal Abdomen: Present: normal appearance, soft Uterus: Present: normal, firm (The uterine fundus is tonic and nontender below the umbilicus.) - Labs Labs: Abnormal Lab Results - Last 24 Hours (Table) 02/11/24 Range/Units 01:37 RBC 3.71 L (3.80-5.40) m/uL Hgb 11.3 L (11.4-16.0) gm/dL Hct 33.3 L (34.0-46.0) % Assessment and Plan (1) Normal spontaneous vaginal delivery Current Visit: Yes Status: Acute Code(s): O80 - ENCOUNTER FOR FULL-TERM UNCOMPLICATED DELIVERY SNOMED Code(s): 59546088 Plan: Continue routine and postoperative care. I would anticipate discharge home tomorrow pending no complications.
--- NOTE | 2024-02-12 06:24 | P.DS ---
Providers Date of admission: 02/10/24 06:26 Expected date of discharge: 02/12/24 Attending physician: Maria Guadalupe Stern MD Primary care physician: Stated None - Discharge Diagnosis(es) (1) Normal spontaneous vaginal delivery Current Visit: Yes Status: Acute Hospital Course: The patient is a 29-year-old 2 para 1-0-0-1 admitted at 37-0/7 weeks by good dating parameters. She is admitted for induction of labor secondary to intrauterine growth restriction with growth in the 3rd percentile and abnormal up umbilical cord Dopplers. testing has been extensive and reassuring throughout. On labor and delivery, she had Pitocin started followed by artificial rupture of membranes. She had an epidural catheter placed for analgesia. She ultimately progressed to complete or after she pushed to a normal spontaneous vaginal delivery of a viable 6 pound 0 ounce baby boy with Apgars of 8 at 1 minute and 9 at 5 minutes. Her course was unremarkable with vital signs remaining stable and her temperature was afebrile throughout. She was deemed stable for discharge on day #2 and was discharged home to follow-up in the office in 6 weeks time routinely. Discharge instructions included calling for any significantly increased bleeding or foul- smelling lochia, significantly increased fever abdominal pain, perineal complaints, breast complaints, or anything else that concerned her. She was additionally instructed to have nothing in the vagina for at least 6 weeks time to include intercourse. She understood her instructions and agrees to follow-up as noted above. Discharge medications included continued vitamins as she has opted to breast-feed. She was otherwise to use [id number] a nalgesic pain medications as needed. Maternal blood type is a positive and rubella status is immune. Procedures: #1. Pitocin induction #2. Artificial rupture of membranes #3. Epidural analgesia #4. Normal spontaneous vaginal delivery #5. Repair of perineal laceration Patient Condition at Discharge: Stable Plan - Discharge Summary New Discharge Prescriptions: No Action Psyllium Husk [Fiber Capsule] 0.4 gm PO DAILY Vit No.179/Iron/Folic [ Tablet] 1 tab PO DAILY Ferrous Sulfate [Feosol] 325 mg PO DAILY Docusate [Colace] 100 mg PO DAILY Cyanocobalamin [Vitamin B-12] 500 mcg PO DAILY Cholecalciferol [Vitamin D3 (10 Mcg = 400 Iu)] 10 mcg PO DAILY Discharge Medication List Vit No.179/Iron/Folic [ Tablet] 1 tab PO DAILY 01/08/24 [History] Cholecalciferol [Vitamin D3 (10 Mcg = 400 Iu)] 10 mcg PO DAILY 02/06/24 [History] Cyanocobalamin [Vitamin B-12] 500 mcg PO DAILY 02/06/24 [History] Docusate [Colace] 100 mg PO DAILY 02/06/24 [History] Ferrous Sulfate [Feosol] 325 mg PO DAILY 02/06/24 [History] Psyllium Husk [Fiber Capsule] 0.4 gm PO DAILY 02/06/24 [History] Follow up Appointment(s)/Referral(s): Maria Guadalupe Stern MD [STAFF PHYSICIAN] - 04/02/24 1:30 pm Discharge Disposition: HOME SELF-CARE
[2024-02-12 08:08] VITALS: BP 123/71; PULSE 74; RESP 15; TEMP 98.2
== END 2024-02-12 13:28 | disposition home or self-care (01) | DRG 807 ==
LOC: 4FBP 06:26
PROVIDERS: ADMIT Obstetrics & Gynecology; ATTEND Obstetrics & Gynecology
PROC: 10E0XZZ Delivery of Products of Conception, External Approach (ICD-10-PCS; principal; 2024-02-10)
PROC: 0KQM0ZZ Repair Perineum Muscle, Open Approach (ICD-10-PCS; 2024-02-10)
PROC: 10907ZC Drainage of Amniotic Fluid, Therapeutic from Products of Conception, Via Natural or Artificial Opening (ICD-10-PCS; 2024-02-10)
PROC: 3E033VJ Introduction of Other Hormone into Peripheral Vein, Percutaneous Approach (ICD-10-PCS; 2024-02-10)
DX: O36.5930 Maternal care for other known or suspected poor fetal growth, third trimester, not applicable or unspecified (principal); Z37.0 Single live birth; O69.81X0 Labor and delivery complicated by cord around neck, without compression, not applicable or unspecified; O70.1 Second degree perineal laceration during delivery; Z3A.37 37 weeks gestation of pregnancy
CPT/HCPCS: 85025; 86850; 86900; 86901; 88307

== ENCOUNTER 2024-05-23 10:19 | Emergency (ER) | payer BC ==
--- NOTE | 2024-05-23 11:00 | ED ---
Abdominal Pain HPI - General Chief Complaint: Abdominal Pain Stated Complaint: chest,abdominal,and mouth pain, difficulty breathi Time Seen by Provider: 05/23/24 10:57 Source: patient, RN notes reviewed Mode of arrival: ambulatory Limitations: no limitations - History of Present Illness Initial Comments: 29-year-old female presenting for multiple complaints. Reports around 5 PM last night she began to feel a crampy, burning pain in her lower abdomen radiating to her chest. States the pain is constant and worsening. Endorses nasal congestion, sore throat, and cough for approximately 3 days and was diagnosed with a sinus infection by urgent care yesterday and placed her on doxycycline. Also reports pain on the roof of her mouth and shortness of breath. Last menstrual period was May 11. Denies vaginal bleeding, vaginal discharge, or dysuria, urinary frequency, nausea, vomiting. - Related Data Home Medications Medication Instructions Recorded Confirmed Vit No.179/Iron/Folic 1 tab PO DAILY 01/08/24 05/23/24 [ Tablet] Docusate [Colace] 100 mg PO DAILY 02/06/24 05/23/24 Ferrous Sulfate [Feosol] 325 mg PO DAILY 02/06/24 05/23/24 Ascorbic Acid [Vitamin C] 1,000 mg PO DAILY 05/23/24 05/23/24 Calcium Carbonate [Calcium] 600 mg PO DAILY 05/23/24 05/23/24 Cholecalciferol [Vitamin D3 (25 75 mcg PO DAILY 05/23/24 05/23/24 Mcg = 1000 Iu)] Doxycycline Hyclate 100 mg PO BID 05/23/24 05/23/24 Fluticasone Nasal [place] [Flonase 2 spray EA NOSTRIL BID PRN 05/23/24 05/23/24 Nasal [place]] Vitamin B-12(Unknown Dose) 1 tab PO DAILY 05/23/24 05/23/24 calcium polycarbophiL [Fibercon] 625 mg PO DAILY 05/23/24 05/23/24 Allergies Allergy/AdvReac Type Severity Reaction Status Date / Time amoxicillin AdvReac Unknown Verified 05/23/24 11:03 Childhood amoxicillin trihydrate AdvReac Unknown Verified 05/23/24 11:03 [From Augmentin] Childhood potassium clavulanate AdvReac Unknown Verified 05/23/24 11:03 [From Augmentin] Childhood Review of Systems ROS Statement: Those systems with pertinent positive or pertinent negative responses have been documented in the HPI. ROS Other: All systems not noted in ROS Statement are negative. Past Medical History Past Medical History: No Reported History Additional Past Medical History / Comment(s): OVARIAN CYST. 2 lesions in frontal lobe History of Any Multi-Drug Resistant Organisms: None Reported Past Surgical History: No Surgical Hx Reported Past Anesthesia/Blood Transfusion Reactions: No Reported Reaction Past Psychological History: No Psychological Hx Reported Smoking Status: Never smoker Past Alcohol Use History: None Reported Past Drug Use History: None Reported - Past Family History Father Family Medical History: AFIB General Exam Limitations: no limitations General appearance: alert, in no apparent distress Head exam: Present: atraumatic, normocephalic, normal inspection Eye exam: Present: normal appearance, PERRL, EOMI. Absent: scleral icterus, conjunctival injection, periorbital swelling ENT exam: Present: normal exam, normal oropharynx, mucous membranes moist Neck exam: Present: normal inspection. Absent: tenderness, meningismus, lymphadenopathy Respiratory exam: Present: normal lung sounds bilaterally. Absent: respiratory distress, wheezes, rales, rhonchi, stridor Cardiovascular Exam: Present: regular rate, normal rhythm, normal heart sounds. Absent: systolic murmur, diastolic murmur, rubs, gallop, clicks GI/Abdominal exam: Present: soft, normal bowel sounds. Absent: distended, tenderness, guarding, rebound, rigid Neurological exam: Present: alert, oriented X3 Psychiatric exam: Present: normal affect, normal mood Skin exam: Present: warm, dry, intact, normal color. Absent: rash Course Vital Signs 05/23/24 10:22 Temperature 98.1 F Pulse Rate 113 H Respiratory 20 Rate Blood Pressure 137/77 O2 Sat by Pulse 99 Oximetry Medical Decision Making - Medical Decision Making Was pt. sent in by a medical professional or institution (, PA, CUSTOMS OFFICER, urgent care, hospital, or senior care...) When possible be specific @ -No Did you speak to anyone other than the patient for history (EMS, parent, family, police, friend...)? What history was obtained from this source @ -No Did you review nursing and triage notes (agree or disagree)? Why? @ -I reviewed and agree with nursing and triage notes Were old charts reviewed (outside hosp., previous admission, EMS record, old EKG, old radiological studies, urgent care reports/EKG's, senior care records)? Report findings @ -No old charts were reviewed Differential Diagnosis (chest pain, altered mental status, abdominal pain women, abdominal pain men, vaginal bleeding, weakness, fever, dyspnea, syncope, headache, dizziness, GI bleed, back pain, seizure, CVA, palpatations, mental health, musculoskeletal)? @ -Differential Abdominal Pain Women: Appendicitis, Cholecystitis, diverticulosis, ischemic bowel, pancreatitis, hepatitis, UTI, gastroenteritis, AAA, incarcerated hernia, bowel obstruction, constipation, inflammatory bowel, hepatitis, peptic ulcer disease, splenic infarction, perforated viscus, vulvitis, ovarian torsion, PID, kidney stone, placenta abruption, this is not meant to be an all-inclusive list EKG interpreted by me (3pts min.). @ -None X-rays interpreted by me (1pt min.). @ -Chest x-ray reveals no acute process CT interpreted by me (1pt min.). @ -None done U/S interpreted by me (1pt. min.). @ -Ultrasound pelvis reveals no acute abnormality What testing was considered but not performed or refused? (CT, X-rays, U/S, labs)? Why? @ -None What meds were considered but not given or refused? Why? @ -None Did you discuss the management of the patient with other professionals (professionals i.e. , PA, CUSTOMS OFFICER, lab, RT, psych nurse, social services specialist, hat body sorter, t eacher, financial compliance officer, rn case manager)? Give summary @ -No Was smoking cessation discussed for >3mins.? @ -No Was critical care preformed (if so, how long)? @ -No Were there social determinants of health that impacted care today? How? (Homelessness, low income, unemployed, alcoholism, drug addiction, transportation, low edu. Level, literacy, decrease access to med. care, [facility], rehab)? @ -No Was there de-escalation of care discussed even if they declined (Discuss DNR or withdrawal of care, Hospice)? DNR status @ -No What co-morbidities impacted this encounter? (DM, HTN, Smoking, COPD, CAD, Cance r, CVA, ARF, Chemo, Hep., AIDS, mental health diagnosis, sleep apnea, morbid obesity)? @ -None Was patient admitted / discharged? Hospital course, mention meds given and route, prescriptions, significant lab abnormalities, going to OR and other pertinent info. @ -Discharged. 29-year-old female presenting for pelvic pain. Abdomen is soft and nonsurgical. Denies vaginal bleeding, vaginal discharge. Patient was provided with IV fluids and analgesics. Lab work including CBC, CMP, lactic acid, lipase largely unremarkable besides mildly elevated bilirubin 1.5. White blood cell count stable at 7.3. Urinalysis remarkable for 1+ ketones otherwise unremarkable. Urine negative. Patient is negative for influenza, COVID-19, and RSV. Chest x-ray reveals no acute process. Ultrasound of the pelvis reveals no acute abnormality. Upon reevaluation, patient reports significant improvement of symptoms. Patient updated on results. There is no sign of emergent etiology causing symptoms today. I highly suspect symptoms may be due to mittelschmerz due to quality of pain and timing of last menstrual period. Appropriate return precautions and follow-up care discussed. Case was discussed with ED attending Dr. Murillo. Undiagnosed new problem with uncertain prognosis? @ -No Drug Therapy requiring intensive monitoring for toxicity (Heparin, Nitro, Insulin, Cardizem)? @ -No Were any procedures done? @ -No Diagnosis/symptom? @ -Pelvic pain Acute, or Chronic, or Acute on Chronic? @ -Acute Uncomplicated (without systemic symptoms) or Complicated (systemic symptoms)? @ -Uncomplicated Side effects of treatment? @ -No Exacerbation, Progression, or Severe Exacerbation? @ -No Poses a threat to life or bodily function? How? (Chest pain, USA, IA, pneumonia, PE, COPD, DKA, ARF, appy, cholecystitis, CVA, Diverticulitis, Homicidal, Suicidal, threat to staff... and all critical care pts) @ -No - Lab Data Result diagrams: 05/23/24 11:22 05/23/24 11:22 Lab Results 05/23/24 05/23/24 05/23/24 Range/Units 11:22 11:22 11:22 WBC 7.3 (3.8-10.6) k/uL RBC 5.15 (3.80-5.40) m/uL Hgb 15.1 (11.4-16.0) gm/dL Hct 45.7 (34.0-46.0) % MCV 88.8 (80.0-100.0) fL MCH 29.4 (25.0-35.0) pg MCHC 33.1 (31.0-37.0) g/dL RDW 12.6 (11.5-15.5) % Plt Count 266 (150-450) k/uL MPV 7.1 Neutrophils % 70 % Lymphocytes % 19 % Monocytes % 7 % Eosinophils % 2 % Basophils % 1 % Neutrophils # 5.1 (1.3-7.7) k/uL Lymphocytes # 1.4 (1.0-4.8) k/uL Monocytes # 0.5 (0-1.0) k/uL Eosinophils # 0.1 (0-0.7) k/uL Basophils # 0.1 (0-0.2) k/uL Sodium (137-145) mmol/L Potassium (3.5-5.1) mmol/L Chloride (98-107) mmol/L Carbon Dioxide (22-30) mmol/L Anion Gap mmol/L BUN (7-17) mg/dL Creatinine (0.52-1.04) mg/dL Est GFR (CKD-EPI)AfAm (>60 ml/min/1.73 sqM) Est GFR (CKD-EPI)NonAf (>60 ml/min/1.73 sqM) Glucose (74-99) mg/dL Plasma Lactic Acid [place] (0.7-2.0) mmol/L Calcium (8.4-10.2) mg/dL Total Bilirubin (0.2-1.3) mg/dL AST (14-36) U/L ALT (4-34) U/L Alkaline Phosphatase (38-126) U/L Total Protein (6.3-8.2) g/dL Albumin (3.5-5.0) g/dL Urine Color Yellow Urine Appearance Clear (Clear) Urine pH 7.0 (5.0-8.0) Ur Specific [place] 1.009 (1.001-1.035) Urine Protein Negative (Negative) Urine Glucose (UA) Negative (Negative) Urine Ketones 1+ H (Negative) Urine Blood Negative (Negative) Urine Nitrite Negative (Negative) Urine Bilirubin Negative (Negative) Urine Urobilinogen <2.0 (<2.0) mg/dL Ur Leukocyte Esterase Negative (Negative) Urine HCG, Qual Not Detected (Not Detectd) Influenza Type A (PCR) (Not Detectd) Influenza Type B (PCR) (Not Detectd) RSV (PCR) (Not Detectd) SARS-CoV-2 (PCR) (Not Detectd) 05/23/24 05/23/24 05/23/24 Range/Units 11:22 11:22 11:22 WBC (3.8-10.6) k/uL RBC (3.80-5.40) m/uL Hgb (11.4-16.0) gm/dL Hct (34.0-46.0) % MCV (80.0-100.0) fL MCH (25.0-35.0) pg MCHC (31.0-37.0) g/dL RDW (11.5-15.5) % Plt Count (150-450) k/uL MPV Neutrophils % % Lymphocytes % % Monocytes % % Eosinophils % % Basophils % % Neutrophils # (1.3-7.7) k/uL Lymphocytes # (1.0-4.8) k/uL Monocytes # (0-1.0) k/uL Eosinophils # (0-0.7) k/uL Basophils # (0-0.2) k/uL Sodium 136 L (137-145) mmol/L Potassium 4.1 (3.5-5.1) mmol/L Chloride 98 (98-107) mmol/L Carbon Dioxide 30 (22-30) mmol/L Anion Gap 8 mmol/L BUN 8 (7-17) mg/dL Creatinine 0.68 (0.52-1.04) mg/dL Est GFR (CKD-EPI)AfAm >90 (>60 ml/min/1.73 sqM) Est GFR (CKD-EPI)NonAf >90 (>60 ml/min/1.73 sqM) Glucose 94 (74-99) mg/dL Plasma Lactic Acid [place] 0.8 (0.7-2.0) mmol/L Calcium 10.3 H (8.4-10.2) mg/dL Total Bilirubin 1.5 H (0.2-1.3) mg/dL AST 22 (14-36) U/L ALT 17 (4-34) U/L Alkaline Phosphatase 46 (38-126) U/L Total Protein 7.2 (6.3-8.2) g/dL Albumin 4.7 (3.5-5.0) g/dL Urine Color Urine Appearance (Clear) Urine pH (5.0-8.0) Ur Specific [place] (1.001-1.035) Urine Protein (Negative) Urine Glucose (UA) (Negative) Urine Ketones (Negative) Urine Blood (Negative) Urine Nitrite (Negative) Urine Bilirubin (Negative) Urine Urobilinogen (<2.0) mg/dL Ur Leukocyte Esterase (Negative) Urine HCG, Qual (Not Detectd) Influenza Type A (PCR) Not Detected (Not Detectd) Influenza Type B (PCR) Not Detected (Not Detectd) RSV (PCR) Not Detected (Not Detectd) SARS-CoV-2 (PCR) Not Detected (Not Detectd) Disposition Clinical Impression: Abdominal pain Disposition: HOME SELF-CARE Condition: Stable Instructions (If sedation given, give patient instructions): Abdominal Pain (ED) Additional Instructions: Please return to the Emergency Department if symptoms worsen or any other concerns. Is patient prescribed a controlled substance at d/c from ED?: No Referrals: Cassandra Giordano DO [Primary Care Provider] - 1-2 days Time of Disposition: 13:28
[2024-05-23] MEDS: SODIUM CHLORIDE 0.9% 1,000 ML IV STA (11:20)
[2024-05-23] MEDS: KETOROLAC 15 MG/ML 1 ML VIAL IVP STA (11:26)
[2024-05-23 11:34] LABS: Basophils # (A) 0.1 k/uL (0-0.2); Basophils % (A) 1 %; Eosinophils # (A) 0.1 k/uL (0-0.7); Eosinophils % (A) 2 %; HCT 45.7 % (34.0-46.0); HGB 15.1 gm/dL (11.4-16.0); Lymphocytes # (A) 1.4 k/uL (1.0-4.8); Lymphocytes % (A) 19 %; MCH 29.4 pg (25.0-35.0); MCHC 33.1 g/dL (31.0-37.0); MCV 88.8 fL (80.0-100.0); Mean Platelet Volume 7.1; Monocytes # (A) 0.5 k/uL (0-1.0); Monocytes % (A) 7 %; Neutrophils # (A) 5.1 k/uL (1.3-7.7); Neutrophils % (A) 70 %; Platelet Count 266 k/uL (150-450); RBC 5.15 m/uL (3.80-5.40); RDW 12.6 % (11.5-15.5); WBC 7.3 k/uL (3.8-10.6)
[2024-05-23 11:37] LABS: Appearance,Urine Clear (Clear); Bilirubin,Urine Negative (Negative); Blood,Urine Negative (Negative); Color,Urine Yellow; Glucose,Urine (UA) Negative (Negative); Ketones,Urine 1+ (Negative); Leukocyte Esterase,Urine Negative (Negative); Nitrite,Urine Negative (Negative); Protein,Urine Negative (Negative); Specific Gravity,Urine 1.009 (1.001-1.035); Urobilinogen,Urine <2.0 mg/dL (<2.0)
[2024-05-23 11:45] LABS: ALT 17 U/L (4-34); AST 22 U/L (14-36); African American GFR (CKD) >90 (>60 ml/min/1.73 sqM); Albumin 4.7 g/dL (3.5-5.0); Alkaline Phosphatase 46 U/L (38-126); Anion Gap 8 mmol/L; Blood Urea Nitrogen 8 mg/dL (7-17); Calcium 10.3 mg/dL (8.4-10.2); Carbon Dioxide 30 mmol/L (22-30); Chloride 98 mmol/L (98-107); Glucose 94 mg/dL (74-99); Non-African American GFR(CKD) >90 (>60 ml/min/1.73 sqM); Potassium 4.1 mmol/L (3.5-5.1); Sodium 136 mmol/L (137-145); Total Bilirubin 1.5 mg/dL (0.2-1.3); Total Protein 7.2 g/dL (6.3-8.2)
--- NOTE | 2024-05-23 11:46 | XR ---
EXAMINATION TYPE: XR chest 2V DATE OF EXAM: 05/23/2024 11:34 AM COMPARISON: Prior chest x-ray May 12, 2017. CLINICAL INDICATION: Female, 29 years old with history of cough, chest pain, TECHNIQUE: Frontal and lateral views of the chest are obtained. FINDINGS: There is no focal air space opacity, pleural effusion, or pneumothorax seen. The cardiac silhouette size remains within normal limits. The osseous structures are intact. IMPRESSION: No acute cardiopulmonary process. [facility], , 05/23/2024 11:44 AM
[2024-05-23 12:09] LABS: Influenza A Not Detected (Not Detectd); Influenza B Not Detected (Not Detectd); RSV Not Detected (Not Detectd)
--- NOTE | 2024-05-23 12:33 | US ---
EXAMINATION TYPE: US pelvic complete DATE OF EXAM: 05/23/2024 COMPARISON: US( 08/14/2019) CLINICAL INDICATION: Female, 29 years old with history of pelvic pain; TECHNIQUE: Transabdominal (TA). Transabdominal grayscale sonographic images of the pelvis were acquired. Transvaginal sonographic im ages were medically necessary to better assess the following anatomy: Doppler imaging: Color Doppler Images were obtained. Spectral doppler images were obtained. FINDINGS: EXAM MEASUREMENTS: Uterus: 7.2x4.7x8.0cm Endometrial Stripe: 1.3cm Right Ovary: 2.4x2.5x3.2cm Left Ovary: 3.1x2.0x2.5cm slightly limited due to bowel, pt did not prefer to do TV if not needed 1. Uterus: Retroverted wnl 2. Endometrium: wnl 3. Right Ovary: slightly obscured by bowel, wnl as best seen 4. Left Ovary: slightly obscured by bowel, Anechoic area seen: 2.0x1.9x2.5cm ?dominant follicle vs c yst, pt experiencing more pain on Lt side Spectral, color and waveform doppler imaging shows good arterial and venous flow within the ovaries ; there is no evidence for ovarian torsion. 5. Bilateral Adnexa: wnl 6. Posterior cul-de-sac: wnl IMPRESSION: 1. No evidence for acute process. 2. Endometrium within normal limits for thickness. 3. Arterial and venous waveforms to the ovaries. 4. Retroverted uterus. [facility], , 05/23/2024 12:31 PM
[2024-05-23 13:40] VITALS: BP 125/72; PULSE 91; RESP 18; TEMP 98
== END 2024-05-23 13:40 | disposition home or self-care (01) ==
LOC: EC 10:19
DX: R10.2 Pelvic and perineal pain (principal); Z88.0 Allergy status to penicillin; Z88.1 Allergy status to other antibiotic agents
CPT/HCPCS: 36415; 80053; 83605; 85025; 81003; 81025; 87636; 71046; 76856; 99284; 96374; 96361; J1885